=== PATIENT | female | born 1995 | race Caucasian/White ===

== ENCOUNTER 2017-01-13 22:38 | Emergency (ER) | payer SELFPAY ==
[~2017-01-13] VITALS: Ht 165.1 cm; Wt 113.4 kg
[2017-01-13] MEDS ORDERED: NS IV 1000 ML 1,000 ML IV ONE (23:32)
[2017-01-13] MEDS ORDERED: ONDANSETRON 4 MG/2 ML (SDV) Z0FRAN IVP ONE (23:45)
[2017-01-13] MEDS ORDERED: morphine INJ 10 MG/ML 1ML (SYR OR VIAL) IVP ONE (23:45)
[2017-01-14 00:47] LABS: BASOPHILS % (AUTO) 0 % (0-10); EOSINOPHILS # (AUTO) 0.1 10^3/uL (0.0-0.3); EOSINOPHILS % (AUTO) 1 % (0-10); LYMPHOCYTES # (AUTO) 4.4 X 10^3 (1.0-4.0); LYMPHOCYTES % (AUTO) 34 % (12-44); MEAN CORPUSCULAR HEMOGLOBIN 30 PG (25-34); MEAN CORPUSCULAR HGB CONC 35 G/DL (32-36); MEAN CORPUSCULAR VOLUME 85 FL (80-99); MEAN PLATELET VOLUME 9.3 FL (7.4-10.4); MONOCYTES # (AUTO) 0.7 X 10^3 (0.0-1.0); MONOCYTES % (AUTO) 5 % (0-12); NEUTROPHILS # (AUTO) 7.6 X 10^3 (1.8-7.8); NEUTROPHILS % (AUTO) 59 % (42-75); PLATELET COUNT 293 10^3/uL (130-400); RED BLOOD COUNT 5.19 10^6/uL (4.35-5.85); RED CELL DISTRIBUTION WIDTH 13.7 % (10.0-14.5); WHITE BLOOD COUNT 12.7 10^3/uL (4.3-11.0)
[2017-01-14 01:11] LABS: ALANINE AMINOTRANSFERASE 26 U/L (0-55); ALBUMIN 4.4 G/DL (3.2-4.5); ANION GAP 15 MMOL/L (5-14); ASPARTATE AMINO TRANSFERASE 23 U/L (5-34); BILIRUBIN,TOTAL 1.1 MG/DL (0.1-1.0); BLOOD UREA NITROGEN 11 MG/DL (7-18); BUN/CREATININE RATIO 14; CALCIUM 9.2 MG/DL (8.5-10.1); CARBON DIOXIDE 15 MMOL/L (21-32); CHLORIDE 109 MMOL/L (98-107); CREATININE SERUM 0.76 MG/DL (0.60-1.30); GFR ESTIMATED > 60; GLUCOSE 232 MG/DL (70-105); LIPASE 22 U/L (8-78); POTASSIUM 4.1 MMOL/L (3.6-5.0); SODIUM 139 MMOL/L (135-145); TOTAL PROTEIN 7.5 G/DL (6.4-8.2)
[2017-01-14] MEDS ORDERED: morphine INJ 10 MG/ML 1ML (SYR OR VIAL) IVP ONE (01:15)
[2017-01-14 01:21] LABS: BILIRUBIN,URINE NEGATIVE (NEGATIVE); KETONES,URINE 2+ (NEGATIVE); LEUKOCYTE ESTERASE ,URINE 2+ (NEGATIVE); NITRITE,URINE NEGATIVE (NEGATIVE); PH,URINE 5 (5-9); PROTEIN,URINE 2+ (NEGATIVE); UROBILINOGEN,URINE 1 MG/DL (NORMAL)
[2017-01-14] MEDS ORDERED: NS IV 1000 ML 1,000 ML IV ONE (01:40)
[2017-01-14] MEDS ORDERED: IOHEXOL 350 MG/ML 100 ML (OMNIPAQUE 350) VIAL IV ONE (02:00)
[2017-01-14] MEDS ORDERED: NS 100 ML (IVPB) BAG IV ONE (02:00)
[2017-01-14] MEDS ORDERED: RX-ONDANSETRON 4 MG ODT (ZOFRAN) PPK #4 SL STA (03:07)
[2017-01-14] MEDS ORDERED: oxyCODONE/APAP 5/325MG (PERCOCET 5) TABLET PO ONE (03:15)
--- NOTE | 2017-01-14 03:15 | ED Abdominal Pain ---
General Chief Complaint: Back Problems Stated Complaint: R SIDE PAIN/VOMITING Nursing Triage Note: Pt reports she began having n/v/d this morning and R middle back pain beginning at 1500 today. Sepsis Screen: No Definite Risk Allergies and Home Medications Allergies Coded Allergies: fentanyl (Unverified Allergy, Unknown, 01/13/17) ibuprofen (Unverified Allergy, Unknown, 01/13/17) ketorolac (Unverified Allergy, Unknown, 01/13/17) tramadol (Unverified Allergy, Unknown, 01/13/17) Uncoded Allergies: Iodine Contrast Dye (Allergy, Unknown, 01/14/17) Home Medications No Active Prescriptions or Reported Meds Past Uhmmlbb-Zqvrjn-Dkljbg Hx Patient Social History Alcohol Use: Denies Use Recreational Drug Use: No Smoking Status: Current Everyday Smoker Type Used: Cigarettes Recent Foreign Travel: No Contact w/Someone Who Travel: No Recent Infectious Disease Expo: No Recent Hopitalizations: No Seasonal Allergies Seasonal Allergies: No Surgeries HX Surgeries: Yes (hernia) Surgeries: Gallbladder Respiratory Hx Respiratory Disorders: No Cardiovascular Hx Cardiac Disorders: No Neurological Hx Neurological Disorders: No Reproductive System Hx Reproductive Disorders: No Genitourinary Hx Genitourinary Disorders: No Gastrointestinal Hx Gastrointestinal Disorders: No Musculoskeletal Hx Musculoskeletal Disorders: No Endocrine Hx Endocrine Disorders: Yes Endocrine Disorders: Diabetes, Insulin dep HEENT HX ENT Disorders: No Cancer Hx Cancer: No Psychosocial Hx Psychiatric Problems: No Physical Exam Vital Signs VS - Last 72 Hours, by Label 01/13/17 01/14/17 23:19 03:29 Temp 99.4 99.4 Pulse 100 76 Resp 18 18 B/P (MAP) 142/55 Pulse Ox 98 98 O2 Delivery Room Air Capillary Refill : Less Than 3 Seconds Progress/Results/Core Measures Results/Orders Lab Results Laboratory Tests Test 01/14/17 00:35 01/14/17 01:15 01/14/17 03:13 Range/Units White Blood Count 12.7 H 4.3-11.0 10^3/uL Red Blood Count 5.19 4.35-5.85 10^6/uL Hemoglobin 15.6 11.5-16.0 G/DL Hematocrit 44 35-52 % Mean Corpuscular Volume 85 80-99 FL Mean Corpuscular Hemoglobin 30 25-34 PG Mean Corpuscular Hemoglobin Concent 35 32-36 G/DL Red Cell Distribution Width 13.7 10.0-14.5 % Platelet Count 293 130-400 10^3/uL Mean Platelet Volume 9.3 7.4-10.4 FL Neutrophils (%) (Auto) 59 42-75 % Lymphocytes (%) (Auto) 34 12-44 % Monocytes (%) (Auto) 5 0-12 % Eosinophils (%) (Auto) 1 0-10 % Basophils (%) (Auto) 0 0-10 % Neutrophils # (Auto) 7.6 1.8-7.8 X 10^3 Lymphocytes # (Auto) 4.4 H 1.0-4.0 X 10^3 Monocytes # (Auto) 0.7 0.0-1.0 X 10^3 Eosinophils # (Auto) 0.1 0.0-0.3 10^3/uL Basophils # (Auto) 0.0 0.0-0.1 10^3/uL Sodium Level 139 135-145 MMOL/L Potassium Level 4.1 3.6-5.0 MMOL/L Chloride Level 109 H 98-107 MMOL/L Carbon Dioxide Level 15 L 21-32 MMOL/L Anion Gap 15 H 5-14 MMOL/L Blood Urea Nitrogen 11 7-18 MG/DL Creatinine 0.76 0.60-1.30 MG/DL Estimat Glomerular Filtration Rate > 60 BUN/Creatinine Ratio 14 Glucose Level 232 H 70-105 MG/DL Calcium Level 9.2 8.5-10.1 MG/DL Total Bilirubin 1.1 H 0.1-1.0 MG/DL Aspartate Amino Transf (AST/SGOT) 23 5-34 U/L Alanine Aminotransferase (ALT/SGPT) 26 0-55 U/L Alkaline Phosphatase 51 40-136 U/L Total Protein 7.5 6.4-8.2 G/DL Albumin 4.4 3.2-4.5 G/DL Lipase 22 8-78 U/L Serum Test, Qualitative NEGATIVE NEGATIVE Urine Color YELLOW Urine Clarity SLIGHTLY CLOUDY Urine pH 5 5-9 Urine Specific [place] 1.030 H 1.016-1.022 Urine Protein 2+ H NEGATIVE Urine Glucose (UA) 3+ H NEGATIVE Urine Ketones 2+ H NEGATIVE Urine Nitrite NEGATIVE NEGATIVE Urine Bilirubin NEGATIVE NEGATIVE Urine Urobilinogen 1 NORMAL MG/DL Urine Leukocyte Esterase 2+ H NEGATIVE Urine RBC (Auto) 1+ H NEGATIVE Urine RBC NONE /HPF Urine WBC 2-5 /HPF Urine Squamous Epithelial Cells 10-25 H /HPF Urine Crystals NONE /LPF Urine Bacteria LARGE H /HPF Urine Casts NONE /LPF Urine Mucus MODERATE H /LPF Urine Culture Indicated YES My Orders Orders - RHONDA ANDREWS MD Cbc With Automated Diff (01/13/17 23:32) Comprehensive Metabolic Panel (01/13/17 23:32) Lipase (01/13/17 23:32) Ua Culture If Indicated (01/13/17 23:32) Saline Lock/Iv-Start (01/13/17 23:32) Ns Iv 1000 Ml (Sodium Chloride 0.9%) (01/13/17 23:32) Ondansetron Injection (Zofran Injectio (01/13/17 23:45) Morphine Injection (Morphine Injection (01/13/17 23:45) Hcg,Qualitative Serum (01/13/17 23:33) Morphine Injection (Morphine Injection (01/14/17 01:15) Urine Culture (01/14/17 01:15) Ns Iv 1000 Ml (Sodium Chloride 0.9%) (01/14/17 01:40) Iohexol Injection (Omnipaque 350 Mg/Ml 1 (01/14/17 02:00) Ns (Ivpb) (Sodium Chloride 0.9% Ivpb Bag (01/14/17 02:00) Ct Abdomen/Pelvis Wo (01/14/17 02:08) Hepatitis Panel Acute (01/14/17 03:07) Oxycodone/Apap 5/325mg Tablet (Percocet (01/14/17 03:15) Rx-Ondansetron Po (Rx-Zofran Po) (01/14/17 03:07) Medications Given in ED Current Medications Medications Dose Ordered Sig/Duyen Route Start Time Stop Time Status Last Admin Dose Admin Morphine Sulfate 5 mg ONCE ONCE IVP 01/13/17 23:45 01/13/17 23:46 DC 01/14/17 00:36 5 MG Morphine Sulfate 5 mg ONCE ONCE IVP 01/14/17 01:15 01/14/17 01:16 DC 01/14/17 01:23 5 MG Ondansetron HCl 8 mg ONCE ONCE IVP 01/13/17 23:45 01/13/17 23:46 DC 01/14/17 00:34 8 MG Oxycodone/ Acetaminophen 1 tab ONCE ONCE PO 01/14/17 03:15 01/14/17 03:16 DC 01/14/17 03:27 1 TAB Sodium Chloride 1,000 ml @ 0 mls/hr Q0M ONCE IV 01/13/17 23:32 01/13/17 23:33 DC 01/14/17 00:34 999 MLS/HR Sodium Chloride 1,000 ml @ 0 mls/hr Q0M ONCE IV 01/14/17 01:40 01/14/17 01:41 DC 01/14/17 01:54 999 MLS/HR Vital Signs/I&O Vital Sign - Last 12Hours 01/13/17 01/14/17 23:19 03:29 Temp 99.4 99.4 Pulse 100 76 Resp 18 18 B/P (MAP) 142/55 Pulse Ox 98 98 O2 Delivery Room Air Blood Pressure Mean: 84 Diagnostic Imaging Diagonstic Imaging: CT Plain Films/CT/US/NM/MRI: abdomen, pelvis Comments CT abdomen and pelvis viewed by me and Stat Rad report reviewed. No acute abnormalities identified. Incidental findings include hepatosplenomegaly with probable diffuse hepatic steatosis. Departure Impression Impression: Primary Impression: Nausea vomiting and diarrhea Additional Impressions: Right sided abdominal pain Hepatic steatosis Hepatomegaly Disposition: HOME, SELF-CARE Condition: Improved Departure-Patient Inst. Decision time for Depature: 03:00 Referrals: NO,LOCAL PHYSICIAN (PCP/Family) Primary Care Physician Patient Instructions: Acute Abdomen (Belly Pain), Nonalcoholic Fatty Liver Disease (DC) Add. Discharge Instructions: Use Zofran (ondansetron) dissolved under the tongue every 4 hours as needed for nausea. Drink plenty of clear liquids and gradually advance your diet with small quantities of bland food as tolerated. Follow-up with a primary care provider as soon as possible. You need to review your hepatitis screen with a primary care provider. Avoid excessive use of Tylenol. If you choose to follow -up with the [facility], you may schedule an appointment at [phone]. All discharge instructions reviewed with patient and/or family. Voiced understanding. Scripts No Active Prescriptions or Reported Meds RHONDA ANDREWS MD Jan 14, 2017 03:15
[2017-01-14 03:29] VITALS: BP 155/89
--- NOTE | 2017-01-14 07:57 | Diagnostic Imaging Report ---
PROCEDURE: CT abdomen and pelvis without contrast. TECHNIQUE: Multiple contiguous axial images were obtained through the abdomen and pelvis without the use of intravenous contrast. INDICATION: Right-sided abdominal pain. Nausea and vomiting. FINDINGS: The lung bases appear clear. The liver is hypodense and enlarged with no discrete mass identified on this unenhanced exam. Cholecystectomy clips are seen. The spleen is not enlarged. The pancreas, and adrenal glands appear grossly unremarkable. The kidneys demonstrate no hydronephrosis. There are from multiple pelvic calcifications that appear to be related to phleboliths. Calcifications in the right side of the pelvis adjacent to the distal ureter course are seen. Although the ureter is not well traced on this exam, no definitive urinary tract stone is seen. The appendix is normal. The colon demonstrate a diffusely contracted appearance with slight wall thickening. There is no bowel obstruction. There is minimal distention of jejunal loops with fluid without excessive dilatation. There is no significant free fluid or fluid collection in the abdomen or pelvis. The uterus and adnexa appear grossly unremarkable. The abdominal aorta is normal in caliber. No para-aortic significantly enlarged lymph node is seen. IMPRESSION: 1. Enlarged fatty liver. 2. Mild colonic wall thickening and increased fluid content in the proximal jejunum could correlate with enteritis/colitis. 3. No definite urinary tract stone. No hydronephrosis. Pelvic calcifications are likely phleboliths. Dictated by: Dictated on workstation # [id number]
== END 2017-01-14 03:29 | disposition home or self-care (01) ==
LOC: ER 22:40
DX: R11.2 Nausea with vomiting, unspecified (principal); R19.7 Diarrhea, unspecified; K76.0 Fatty (change of) liver, not elsewhere classified; R16.0 Hepatomegaly, not elsewhere classified; E11.9 Type 2 diabetes mellitus without complications; F17.210 Nicotine dependence, cigarettes, uncomplicated
CPT/HCPCS: 36415; 74176; 80053; 80074; 81000; 83690; 84703; 85025; 87088; 96361; 96374; 96375; 96376

== ENCOUNTER 2017-09-21 12:20 | Emergency (ER) | payer BC, MEDICAID ==
[~2017-09-21] VITALS: Ht 165.1 cm; Wt 104.3 kg
--- NOTE | 2017-09-21 13:13 | ED GI ---
General Chief Complaint: Back Problems Stated Complaint: LEFT SIDE PAIN Nursing Triage Note: Pt c/o L sided mid back pain that started yesterday. 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 Sepsis Screen: No Definite Risk Source of Information: Patient Exam Limitations: No Limitations History of Present Illness Time Seen By Provider: 13:13 Initial Comments 22-year-old female patient presents to the emergency Department with reports of left-sided flank pain rating at a 9/10 beginning yesterday evening. Also reports pain radiates into the left lateral ribs which she rates it a 3/10. Patient is noted to be coughing. Patient reports taking 3 extra strength Tylenol at 0800 today. Patient is from [place] and states she is here while her as a temporary job. Does complain of frequency, nausea, vomiting, diarrhea. Denies fevers. Patient sees [facility] in [place], [place] for usual medical care. Blood sugars ranging in the upper 100's. No history or family history of kidney stones. Does complain of urinary frequency. Location Injury Occurred: denies known injury Timing/Duration: 12-24 Hours, Getting Worse Severity/Quality: Sharp, Stabbing Location: Flank (left flank) Radiation: Back (left back) Activities at Onset: None Modifying Factors: Worsens With Breathing, Worsens With Eating, Worsens With Movement, Worsens With Palpation, Worsens With Urinating, Worsens With Vomiting Allergies and Home Medications Allergies Coded Allergies: fentanyl (Unverified Allergy, Unknown, 01/13/17) ibuprofen (Unverified Allergy, Unknown, 01/13/17) ketorolac (Unverified Allergy, Unknown, 01/13/17) tramadol (Unverified Allergy, Unknown, 01/13/17) Uncoded Allergies: Iodine Contrast Dye (Allergy, Unknown, 01/14/17) Home Medications Albuterol Sulfate 6.7 Gm Hfa.aer.ad, 2 PUFF IH Q4H PRN for SHORTNESS OF BREATH, #1 Ref 0 Prescribed by: PARTH FERRIS on 09/21/17 1450 Cephalexin 500 Mg Capsule, 500 MG PO TID, #21 Ref 0 Prescribed by: PARTH FERRIS on 09/21/17 1432 Phenazopyridine HCl 100 Mg Tablet, 100 MG PO TID PRN for pain, #14 Ref 0 Prescribed by: PARTH FERRIS on 09/21/17 1432 Review of Systems Constitutional: No chills, No diaphoresis, No dizziness, No fever, malaise EENTM: No Symptoms Reported Respiratory: Cough, Denies Shortness of Air, Denies SOA With Exertion, Denies Wheezing Cardiovascular: See HPI, Chest Pain (left lateral rib pain), Denies Irregular Heart Rate, Denies Lightheadedness, Denies Palpitations, Denies Syncope Gastrointestinal: See HPI, Denies Abdomen Distended, Abdominal Pain (left- sided abdominal pain), Denies Blood Streaked Stools, Denies Constipated, Diarrhea, Nausea, Poor Appetite, Poor Fluid Intake, Denies Rectal Bleeding, Vomiting, Denies Other (denies bowel incontinence) Genitourinary: See HPI, Denies Burning, Denies Discharge, Frequency, Flank Pain (left flank), Denies Hematuria, Denies Incontinence, Denies Urgency Musculoskeletal: see HPI, back pain, No joint pain, No neck pain Skin: no symptoms reported Psychiatric/Neurological: Denies Headache, Denies Numbness, Denies Paresthesia , Denies Tingling, Denies Weakness Endocrine: No Symptoms Reported All Other Systems Reviewed Negative Unless Noted: Yes (Negative excepted noted.) Past Tdwdtoi-Rjtroo-Amhhkv Hx Patient Social History Alcohol Use: Denies Use Recreational Drug Use: No Smoking Status: Current Everyday Smoker Type Used: Cigarettes Recent Foreign Travel: No Contact w/Someone Who Travel: No Recent Infectious Disease Expo: No Recent Hopitalizations: No Seasonal Allergies Seasonal Allergies: No Surgeries History of Surgeries: Yes (hernia) Surgeries: Gallbladder Respiratory History of Respiratory Disorde: No Cardiovascular History of Cardiac Disorders: No Neurological History of Neurological Disord: No Reproductive System Hx Reproductive Disorders: No Genitourinary History of Genitourinary Disor: No Gastrointestinal History of Gastrointestinal Di: No Musculoskeletal History of Musculoskeletal Dis: No Endocrine History of Endocrine Disorders: Yes Endocrine Disorders: Diabetes, Insulin dep Cancer History of Cancer: No Psychosocial History of Psychiatric Problem: No Reviewed Nursing Assessment Reviewed/Agree w Nursing PMH: Yes Family Medical History Significant Family History: No Pertinent Family Hx Physical Exam Vital Signs VS - Last 72 Hours, by Label 09/21/17 12:35 Temp 98.8 Pulse 111 Resp 18 B/P (MAP) 131/97 (108) Pulse Ox 98 O2 Delivery Room Air Capillary Refill : Less Than 3 Seconds General Appearance: WD/WN, no apparent distress (patient is lying on her right side comfortably. upon this examiner entering the room the patient immediately begins crying without tears.) HEENT: PERRL/EOMI, pharynx normal Neck: supple, normal inspection Respiratory: chest non-tender (unable to reproduce left rib pain. ), lungs clear, normal breath sounds, no respiratory distress, no accessory muscle use Cardiovascular: normal peripheral pulses, regular rate, rhythm, no edema, no murmur Peripheral Pulses: 2+ Dorsalis Pedis (R), 2+ Left Dors-Pedis (L), 2+ Radial Pulses (R), 2+ Radial Pulses (L) Gastrointestinal: normal bowel sounds, soft, no organomegaly, No distended, guarding, No rebound, tenderness (generalized LUQ, LLQ, and left flank tenderness.) Extremities: normal range of motion, non-tender, normal inspection, no pedal edema, normal capillary refill, pelvis stable Back: normal inspection, no vertebral tenderness, No CVA tenderness (R), CVA tenderness (L) Neurologic/Psychiatric: alert, oriented x 3, other (patient is lying on her right side comfortably. upon this examiner entering the room the patient immediately begins crying without tears. Intermittently the patient will stop "crying" and speak normally.) Skin: normal color, warm/dry Progress/Results/Core Measures Results/Orders Lab Results Laboratory Tests Test 09/21/17 13:08 09/21/17 13:09 09/21/17 13:42 Range/Units Urine Color YELLOW Urine Clarity CLEAR Urine pH 5 5-9 Urine Specific [place] 1.025 H 1.016-1.022 Urine Protein 3+ H NEGATIVE Urine Glucose (UA) NEGATIVE NEGATIVE Urine Ketones 1+ H NEGATIVE Urine Nitrite NEGATIVE NEGATIVE Urine Bilirubin 1+ H NEGATIVE Urine Urobilinogen 4 H NORMAL MG/DL Urine Leukocyte Esterase 1+ H NEGATIVE Urine RBC (Auto) NEGATIVE NEGATIVE Urine RBC RARE /HPF Urine WBC 5-10 H /HPF Urine Squamous Epithelial Cells 25-50 H /HPF Urine Crystals NONE /LPF Urine Bacteria LARGE H /HPF Urine Casts NONE /LPF Urine Mucus SMALL H /LPF Urine Culture Indicated YES Urine Opiates Screen NEGATIVE NEGATIVE Urine Oxycodone Screen NEGATIVE NEGATIVE Urine Methadone Screen NEGATIVE NEGATIVE Urine Propoxyphene Screen NEGATIVE NEGATIVE Urine Barbiturates Screen NEGATIVE NEGATIVE Ur Tricyclic Antidepressants Screen NEGATIVE NEGATIVE Urine Phencyclidine Screen NEGATIVE NEGATIVE Urine Amphetamines Screen POSITIVE H NEGATIVE Urine Methamphetamines Screen POSITIVE H NEGATIVE Urine Benzodiazepines Screen POSITIVE H NEGATIVE Urine Cocaine Screen NEGATIVE NEGATIVE Urine Cannabinoids Screen POSITIVE H NEGATIVE White Blood Count 8.5 4.3-11.0 10^3/uL Red Blood Count 5.55 4.35-5.85 10^6/uL Hemoglobin 16.7 H 11.5-16.0 G/DL Hematocrit 48 35-52 % Mean Corpuscular Volume 86 80-99 FL Mean Corpuscular Hemoglobin 30 25-34 PG Mean Corpuscular Hemoglobin Concent 35 32-36 G/DL Red Cell Distribution Width 13.3 10.0-14.5 % Platelet Count 266 130-400 10^3/uL Mean Platelet Volume 9.5 7.4-10.4 FL Neutrophils (%) (Auto) 62 42-75 % Lymphocytes (%) (Auto) 26 12-44 % Monocytes (%) (Auto) 11 0-12 % Eosinophils (%) (Auto) 1 0-10 % Basophils (%) (Auto) 0 0-10 % Neutrophils # (Auto) 5.3 1.8-7.8 X 10^3 Lymphocytes # (Auto) 2.2 1.0-4.0 X 10^3 Monocytes # (Auto) 0.9 0.0-1.0 X 10^3 Eosinophils # (Auto) 0.0 0.0-0.3 10^3/uL Basophils # (Auto) 0.0 0.0-0.1 10^3/uL Sodium Level 135 135-145 MMOL/L Potassium Level 4.4 3.6-5.0 MMOL/L Chloride Level 104 98-107 MMOL/L Carbon Dioxide Level 21 21-32 MMOL/L Anion Gap 10 5-14 MMOL/L Blood Urea Nitrogen 12 7-18 MG/DL Creatinine 0.73 0.60-1.30 MG/DL Estimat Glomerular Filtration Rate > 60 BUN/Creatinine Ratio 16 Glucose Level 154 H 70-105 MG/DL Calcium Level 9.7 8.5-10.1 MG/DL Total Bilirubin 1.0 0.1-1.0 MG/DL Aspartate Amino Transf (AST/SGOT) 21 5-34 U/L Alanine Aminotransferase (ALT/SGPT) 30 0-55 U/L Alkaline Phosphatase 53 40-136 U/L C-Reactive Protein High Sensitivity 0.85 H 0.00-0.50 MG/DL Total Protein 7.8 6.4-8.2 GM/DL Albumin 4.5 3.2-4.5 GM/DL My Orders Orders - PARTH FERRIS Ua Culture If Indicated (09/21/17 13:11) Urine Bedside (09/21/17 13:11) Cbc With Automated Diff (09/21/17 13:21) Comprehensive Metabolic Panel (09/21/17 13:21) Hs C Reactive Protein (09/21/17 13:21) Drug Screen Stat (Urine) (09/21/17 13:21) Saline Lock/Iv-Start (09/21/17 13:21) Ns Iv 1000 Ml (Sodium Chloride 0.9%) (09/21/17 13:21) Ondansetron Injection (Zofran Injectio (09/21/17 13:30) Morphine Injection (Morphine Injection (09/21/17 13:21) Urine Culture (09/21/17 13:08) Acetaminophen Tablet (Tylenol Tablet) (09/21/17 14:50) Phenazopyridine Tablet (Pyridium Tablet) (09/21/17 14:50) Medications Given in ED Current Medications Medications Dose Ordered Sig/Duyen Route Start Time Stop Time Status Last Admin Dose Admin Ondansetron HCl 4 mg ONCE ONCE IVP 09/21/17 13:30 12 13:31 DC 09/21/17 13:37 4 MG Sodium Chloride 1,000 ml @ 0 mls/hr Q0M ONCE IV 09/21/17 13:21 09/21/17 13:24 DC 09/21/17 13:39 1,000 MLS/HR Vital Signs/I&O Vital Sign - Last 12Hours 09/21/17 12:35 Temp 98.8 Pulse 111 Resp 18 B/P (MAP) 131/97 (108) Pulse Ox 98 O2 Delivery Room Air Blood Pressure Mean: 108 Departure Impression Impression: Primary Impression: Acute bronchitis Additional Impressions: Methamphetamine abuse Marijuana abuse Urinary tract infection Disposition: 01 HOME, SELF-CARE Condition: Improved Departure-Patient Inst. Decision time for Depature: 14:29 Referrals: NO,LOCAL PHYSICIAN (PCP/Family) Primary Care Physician Patient Instructions: Acute Bronchitis, Adult (DC), Drug Abuse and Drug Addiction (DC), Methamphetamine, Urinary Tract Infection, Adult (DC) Add. Discharge Instructions: All discharge instructions reviewed with patient and/or family. Voiced understanding. Tylenol extra strength [id number] as directed for pain. Nlgr-jxe-zdezqpg decongestants, antihistamines, and cough suppressants as directed by the busher helper for symptoms. Cool humidifier. Stop smoking as this will increases your risk of bronchitis. Drink plenty of fluids. Rest. Follow-up with your primary care provider for recheck as an outpatient tomorrow , call today for appointment time. Return to the emergency department for worsened symptoms or any other concerns. Scripts Albuterol Sulfate (Proventil Hfa) 6.7 Gm Hfa.aer.ad 2 PUFF IH Q4H Y for SHORTNESS OF BREATH, #1 EACH 0 Refills Prov: PARTH FERRIS 09/21/17 Phenazopyridine HCl (Pyridium) 100 Mg Tablet 100 MG PO TID Y for pain, #14 TAB 0 Refills Prov: PARTH FERRIS 09/21/17 Cephalexin (Cephalexin) 500 Mg Capsule 500 MG PO TID, #21 CAP 0 Refills Prov: PARTH FERRIS 09/21/17 PARTH FERRIS Sep 21, 2017 13:13
[2017-09-21 13:18] LABS: KETONES,URINE 1+ (NEGATIVE); LEUKOCYTE ESTERASE ,URINE 1+ (NEGATIVE); NITRITE,URINE NEGATIVE (NEGATIVE); PH,URINE 5 (5-9); PROTEIN,URINE 3+ (NEGATIVE); UROBILINOGEN,URINE 4 MG/DL (NORMAL)
[2017-09-21] MEDS ORDERED: NS IV 1000 ML 1,000 ML IV ONE (13:21)
[2017-09-21] MEDS ORDERED: morphine INJ 10 MG/ML 1ML (SYR OR VIAL) IVP STA (13:21)
[2017-09-21] MEDS ORDERED: ONDANSETRON 4 MG/2 ML (SDV) Z0FRAN IVP ONE (13:30)
[2017-09-21 13:38] LABS: BILIRUBIN,URINE 1+ (NEGATIVE); SQUAMOUS EPITHELIAL CELL,UR 25-50 /HPF
[2017-09-21 14:00] LABS: BASOPHILS % (AUTO) 0 % (0-10); EOSINOPHILS % (AUTO) 1 % (0-10); LYMPHOCYTES # (AUTO) 2.2 X 10^3 (1.0-4.0); LYMPHOCYTES % (AUTO) 26 % (12-44); MEAN CORPUSCULAR HEMOGLOBIN 30 PG (25-34); MEAN CORPUSCULAR HGB CONC 35 G/DL (32-36); MEAN CORPUSCULAR VOLUME 86 FL (80-99); MEAN PLATELET VOLUME 9.5 FL (7.4-10.4); MONOCYTES # (AUTO) 0.9 X 10^3 (0.0-1.0); MONOCYTES % (AUTO) 11 % (0-12); NEUTROPHILS # (AUTO) 5.3 X 10^3 (1.8-7.8); NEUTROPHILS % (AUTO) 62 % (42-75); PLATELET COUNT 266 10^3/uL (130-400); RED BLOOD COUNT 5.55 10^6/uL (4.35-5.85); RED CELL DISTRIBUTION WIDTH 13.3 % (10.0-14.5); WHITE BLOOD COUNT 8.5 10^3/uL (4.3-11.0)
[2017-09-21 14:21] LABS: ALANINE AMINOTRANSFERASE 30 U/L (0-55); ALBUMIN 4.5 GM/DL (3.2-4.5); ANION GAP 10 MMOL/L (5-14); ASPARTATE AMINO TRANSFERASE 21 U/L (5-34); BLOOD UREA NITROGEN 12 MG/DL (7-18); BUN/CREATININE RATIO 16; CALCIUM 9.7 MG/DL (8.5-10.1); CARBON DIOXIDE 21 MMOL/L (21-32); CHLORIDE 104 MMOL/L (98-107); CREATININE SERUM 0.73 MG/DL (0.60-1.30); GFR ESTIMATED > 60; GLUCOSE 154 MG/DL (70-105); POTASSIUM 4.4 MMOL/L (3.6-5.0); SODIUM 135 MMOL/L (135-145); TOTAL PROTEIN 7.8 GM/DL (6.4-8.2); hs C REACTIVE PROTEIN 0.85 MG/DL (0.00-0.50)
[2017-09-21] MEDS ORDERED: CEPH500C PO (14:32)
[2017-09-21] MEDS ORDERED: PHEN-639 PO (14:32)
[2017-09-21] MEDS ORDERED: ACETAMINOPHEN 500 MG TAB (TYLENOL) PO STA (14:50)
[2017-09-21] MEDS ORDERED: RT-ALBUINH IH (14:50)
[2017-09-21] MEDS ORDERED: PHENAZOPYRIDINE 100 MG (PYRIDIUM) TABLET PO STA (14:50)
[2017-09-21 15:04] VITALS: BP 133/90
== END 2017-09-21 15:07 | disposition home or self-care (01) ==
LOC: EDUNIT# 12:20 → ER 12:23
DX: N39.0 Urinary tract infection, site not specified (principal); J20.9 Acute bronchitis, unspecified; F15.10 Other stimulant abuse, uncomplicated; F12.10 Cannabis abuse, uncomplicated; E11.9 Type 2 diabetes mellitus without complications; Z79.4 Long term (current) use of insulin; Z87.19 Personal history of other diseases of the digestive system; Z98.890 Other specified postprocedural states
CPT/HCPCS: 36415; 80053; 80306; 81000; 84703; 85025; 86141; 87088